=== PATIENT | female | born 1995 | race Caucasian/White ===

== ENCOUNTER 2021-04-09 23:50 | Emergency (ER) | payer OTHER | END 2021-04-10 04:25 | disposition home or self-care (01) | LOC: FER 23:50 | DX: O9A.211 Injury, poisoning and certain other consequences of external causes complicating pregnancy, first trimester (principal); S93.611A Sprain of tarsal ligament of right foot, initial encounter; Z3A.01 Less than 8 weeks gestation of pregnancy; W17.89XA Other fall from one level to another, initial encounter | CPT/HCPCS: 73610; 73630 ==